=== PATIENT | female | born 1935 | race Caucasian/White ===

== ENCOUNTER 2019-02-15 09:30 | Inpatient (IN) | payer OTHER ==
[~2019-02-15] VITALS: Ht 152.4 cm; Wt 57.6 kg
[~2019-02-15 09:30] MED LIST: [UNRECOGNIZED DRUG - OTHER] PO
[2019-02-15] MEDS ORDERED: NORVASC5 MG PO (09:36)
[2019-02-15] MEDS ORDERED: CARVEDILOL3.125 MG PO (09:37)
[2019-02-15] MEDS ORDERED: METOLAZONE5 MG PO (09:37)
[2019-02-15] MEDS ORDERED: COZAAR25 MG PO (09:37)
[2019-02-15] MEDS ORDERED: GLIMEPIRIDE4 MG PO (09:37)
[2019-02-15] MEDS ORDERED: LEVO-T75 MCG PO (09:37)
[2019-02-15] MEDS ORDERED: SINGULAIR 5MG5 MG PO (09:38)
[2019-02-15] MEDS ORDERED: METFORMIN HCL500 MG PO (09:38)
[2019-02-20] MEDS ORDERED: PERCOCET 5-3251 EACH PO (09:57)
[2019-02-20] MEDS ORDERED: CLONAZEPAM1 MG PO (09:57)
[2019-02-20] MEDS ORDERED: DOCUSATE SODIU100 MG PO (09:57)
[2019-02-20] MEDS ORDERED: GABAPENTIN800 MG PO (09:57)
[2019-02-20] MEDS ORDERED: AMOX-CLAV 875-1 EACH PO (09:57)
== END 2019-02-21 14:59 | DRG 520 ==
LOC: O/R 02-20 05:40 → SURG 02-20 05:40 → SURH 02-20 07:00 → SURG 02-20 10:40
PROVIDERS: ADMIT Orthopaedic Surgery Orthopaedic Surgery of the Spine
PROC: 4A12X4Z Monitoring of Cardiac Electrical Activity, External Approach (ICD-10-PCS; 2019-02-20)
PROC: 0ST20ZZ Resection of Lumbar Vertebral Disc, Open Approach (ICD-10-PCS; principal; 2019-02-20 07:00)
DX: M48.062 Spinal stenosis, lumbar region with neurogenic claudication (principal); M51.26 Other intervertebral disc displacement, lumbar region; M96.1 Postlaminectomy syndrome, not elsewhere classified; E11.9 Type 2 diabetes mellitus without complications; I10 Essential (primary) hypertension; E03.8 Other specified hypothyroidism